=== PATIENT | female | born 1995 | race Two or more races ===

== ENCOUNTER 2024-12-02 19:40 | Emergency (ER) | payer BC, SELFPAY ==
[2024-12-02 19:41] VITALS: BMI 39.4
[2024-12-02 20:24] VITALS: BP 135/86; PULSE 102; RESP 18; TEMP 36.9; O2SAT 98
--- NOTE | 2024-12-02 20:28 | XR_ITS ---
Examination: Abdomen sonogram, Limited Date and time of exam: December 02, 2024 2103 hours INDICATIONS: Epigastric pain beginning 4 hours ago Technique: Real-time myles scale transabdominal sonographic images of the upper abdomen obtained. Findings: Normal gallbladder Normal common bile duct Pancreatic head 2.9 cm Liver 18.0 cm fatty infiltration no focal liver lesions Normal hepatopedal portal venous flow Patent IVC IMPRESSION: Normal gallbladder
--- NOTE | 2024-12-02 20:28 | EDNOTE_ITS ---
<Statement entered by Diamond Martin MD - 12/03/24 21:40> As co-signing physician, I was present and available for consult prn. I concur with the plan and care as documented by the midlevel provider. ED Abdominal Pain RME/HPI General Chief Complaint: Abdominal Pain Stated complaint: ABD PAIN Time seen by provider: 12/02/24 20:25 Arrival date/time: 12/02/24 19:40 RME / HPI RME / HPI narrative: 29-year-old female patient with no significant past medical history, came in for evaluation regarding epigastric pain. Onset of symptoms since this afternoon sudden onset of epigastric pain, described as sharp intermittent moderate patient also complained of bladder discomfort. Denies any dysuria or frequency. Denies any vomiting denies any fever but complains of nausea. No medications taken prior to arrival. Related Data Previous Rx's ?Medication ?Instructions ?Recorded cyclobenzaprine 5 mg tablet 5 mg PO QDAY PRN muscle sp asm #14 09/02/20 tabs methylprednisolone 4 mg tablets in 4 mg PO .as directe d #21 tabs 09/02/20 a dose pack (Medrol (Roly)) naproxen 500 mg tablet 500 mg PO BID PRN pain #30 t abs 09/02/20 cefuroxime axetil 500 mg tablet 500 mg PO BID #14 tabs 12/02/24 famotidine 40 mg tablet (Pepcid) 40 mg PO QDAY #20 tab s 12/02/24 ibuprofen 800 mg tablet 800 mg PO Q8H PRN pain #30 t abs 12/02/24 Allergies Allergy/AdvReac Type Severity Reaction Status Date / Time No Known Allergies Allergy Verified 12/02/24 19:41 Review of Systems Review of Systems Narrative Review of Systems: Review of system reviewed and within normal limits except mentioned in HPI ED Exam Narrative Physical exam: VITAL SIGNS: Reviewed. GENERAL APPEARANCE: Alert and interactive, follows commands, no acute distress, HEAD AND FACE: Non-traumatic. ENT: PERRL, pink conjunctivitis, eyelid no trauma, Mucous membrane moist. NECK: Supple, nontender, no nuchal rigidity. CHEST: No tenderness, no crepitus, no paradoxical movement, no retractions. LUNGS: Clear, well ventilated, symmetric, no rales, no wheezing, no ronchi, no stridor, good breath sounds bilaterally. HEART: Regular rate, regular rhythm, no murmur, no gallops. ABDOMEN: Soft, positive bowel sounds, nondistended, no guarding, epigastric tenderness, no tenderness to the left lower quadrant and right lower quadrant of the abdomen even on deep palpation. No rebound, no masses, RECTAL: Deferred. GENITAL: Deferred. NEUROLOGICAL: Gross motor function intact sensory function intact, Appropriate for age. MUSCULOSKELETAL: low back nontender, full range of motion. EXTREMITIES: Nontender, full range of motion. SKIN: Color pink, dry, no rash, no lacerations, no abrasions, no contusions. LYMPHATICS: Deferred. Course Quality Measures none Orders Category Date Time Status US gall bladder Stat Exams 12/02/24 20:28 Completed CBC Stat Lab 12/02/24 21:22 Completed Comprehensive Metabolic Panel Stat Lab 12/02/24 21:22 Completed HCG Qualitative,Urine Stat Lab 12/02/24 21:25 Completed Lipase Stat Lab 12/02/24 21:22 Completed Prothrombin Time with INR Stat Lab 12/02/24 21:22 Completed UA, C/S IF [Urinalysis, C/S if Indicated] Stat Lab 12/02/24 21:25 Completed Urine Culture Stat Lab 12/02/24 21:25 Received Ketorolac Inj [Toradol Inj] Med 12/02/24 20:28 Pending 30 mg IM X1 ONE Ondansetron Odt [Zofran Odt] Med 12/02/24 20:28 Discontinued 4 mg PO X1 ONE cefTRIAXone [Rocephin] 1,000 mg Med 12/02/24 22:06 Discontinued Lidocaine 1% 20 ml [Xylocaine 1% 20 ML] 2.1 ml IM X1 Vital Signs Vital signs: Vital Signs Temperature 98.5 F 12/02/24 20:24 Pulse Rate 102 H 12/02/24 20:24 Respiratory Rate 18 12/02/24 20:24 Blood Pressure 135/86 H 12/02/24 20:24 Pulse Oximetry (%) 98 12/02/24 20:24 Oxygen Delivery Method Room Air 12/02/24 20:24 Abdominal Pain MDM MDM Narrative MDM Narrative:: 29-year-old female patient with no significant past medical history, came in for evaluation regarding epigastric pain. Onset of symptoms since this afternoon sudden onset of epigastric pain, described as sharp intermittent moderate patient also complained of bladder discomfort. Denies any dysuria or frequency. Denies any vomiting denies any fever but complains of nausea. No medications taken prior to arrival. Ultrasound of the gallbladder came back unremarkable. Laboratory workup came back unremarkable except for significant UTI on the urinalysis Patient received ceftriaxone IM Patient appears nontoxic and hemodynamically stable .Decision to discharge the patient. The patient/family was given an opportunity to ask questions and understood their discharge instructions. Discharge instructions specifically included follow up provider and time frame, current and/or new medications and possible side effects, indications for sooner follow up or return to the emergency department, and the expected course of current diagnosis. Patient reports feeling better as well and giving evidence of significant clinical improvement, I believe patient is now a candidate for discharge. Patient data External records reviewed:: [facility] previous records Clinical information provided by:: patient Social determinants that could affect healthcare access:: none Patient has the following chronic illnesses:: None How is presenting disease/condition affected by chronic disease/condition?: no chronic disease Evaluation data The following diagnostics were reviewed and interpreted by me:: lab results and radiology exam(s) Lab and/or radiology exams considered but not ordered:: None Interpretation Summary: See results MDM Medications / Prescriptions Medications or Prescriptions considered but not ordered:: None Medication administrations:: Medication Administration History Ketorolac Tromethamine (Ketorolac Inj 60 Mg/2 Ml Vial) 30 mg IM X1 ONE Stop: 12/02/24 20:29 Discontinued Medications Ceftriaxone Sodium 1,000 mg/ (Lidocaine HCl 2.1 ml) 0 mg IM X1 ONE Stop: 12/02/24 22:07 Ondansetron HCl (Ondansetron Odt 4 Mg Tabrap) 4 mg PO X1 ONE; Protocol Stop: 12/02/24 20:29 Last Admin: 12/02/24 20:41 Dose: 4 mg Documented By: Zofran Toradol and ceftriaxone IM Consultations Consultation(s) initiated? (list below): No Diagnosis Differential diagnosis abdominal pain: other (Cholelithiasis ) Most likely diagnosis given after review of the tests above:: UTI, epigastric pain Admission Indicated Admission indicated?: not indicated Explain why admission is indicated or not indicated:: Stable Admission Request Was there a request for admission?: No Disposition Plan Disposition Plan: Discharge Discharge Attestation Discharge Attestation: The patient was given an opportunity to ask questions and understood the discharge instructions. Discharge instructions specifically effects, indications for sooner follow up or return to the emergency department, and the expected course of current diagnosis. Patient condition: Stable Discharge Plan Plan Patient Disposition: HOME (Self Care) Discharge Disposition comment: Stable Prescriptions/Referrals Prescriptions/Med Rec: New cefuroxime axetil 500 mg tablet 500 mg PO BID Qty: 14 0RF ibuprofen 800 mg tablet 800 mg PO Q8H PRN (Reason: pain) Qty: 30 0RF famotidine [Pepcid] 40 mg tablet 40 mg PO QDAY Qty: 20 0RF No Action methylprednisolone [Medrol (Roly)] 4 mg tablets,dose pack 4 mg PO .as directed Qty: 21 0RF naproxen 500 mg tablet 500 mg PO BID PRN (Reason: pain) Qty: 30 0RF cyclobenzaprine 5 mg tablet 5 mg PO QDAY PRN (Reason: muscle spasm) Qty: 14 0RF Referrals: No Primary/Family,Physician [Primary Care Provider] - In 1 week Problem List Clinical Impression: UTI (urinary tract infection), Acute epigastric pain Patient/Caregiver Discharge Instructions Discharge Activity: activity as tolerated Education Materials: Understanding Urinary Tract ... Additional Instructions: Thank you for the opportunity for serving you today. You are stable for discharged . You are advised to: Follow-up with your PCP in 1 to 2 days Return to ED for worsening of symptoms Increase oral fluids Take medication as prescribed Print Language: Chinese Stand Alone Forms: Caroline Award Info., Patient Portal Info Letter TONNY/JIGNESH Supervising Physician TONNY/JIGNESH Supervising Physician: MD Kasey
[2024-12-02] MEDS: ONDANSETRON ODT 4 MG TABRAP PO (20:41)
[2024-12-02 21:31] LABS: Collection Type, Urine Clean Catch
[2024-12-02 21:33] LABS: Basophils # (Auto) 0.1 Thou/mm3 (0.0-0.2); Basophils % (Auto) 1 % (0-2.5); Eosinophils # (Auto) 0.2 Thou/mm3 (0.0-0.5); Eosinophils % (Auto) 1 % (0-10); Hematocrit 40.9 % (36.0-46.0); Hemoglobin 14.3 g/dL (12.0-16.0); Immature Granulocytes Auto 0.10 Thou/mm3 (0.00-0.00); Lymphocytes # (Auto) 4.8 Thou/mm3 (1.0-4.8); Lymphocytes % (Auto) 20 % (10-50); Mean Corpuscular HGB Conc 35.0 g/dl (31.0-37.0); Mean Corpuscular Hemoglobin 29.5 pg (25.0-35.0); Mean Corpuscular Volume 84 fL (80-100); Monocytes # (Auto) 1.2 Thou/mm3 (0.0-0.8); Monocytes % (Auto) 5 % (0-12); Neutrophils # (Auto) 17.8 Thou/mm3 (1.8-7.7); Neutrophils % (Auto) 73 % (37-80); Nucleated Red Blood Cell # 0.00 Thou/mm3 (0.00-0.00); Nucleated Red Blood Cell % 0 /100 WBC (0); Platelet Count 354 Thou/mm3 (140-440); RDW Standard Deviation 36.3 fL (36.4-46.3); Red Blood Count 4.85 Miln/mm3 (4.00-5.20); White Blood Count 24.2 Thou/mm3 (3.6-11.0)
[2024-12-02 21:37] LABS: HCG Qualitative,Urine Negative
[2024-12-02 21:39] LABS: Bilirubin,Urine Negative (Negative); Blood,Urine Negative (Negative); Clarity,Urine Clear (Clear/Hazy); Color,Urine Lt-Yellow (Lt Yel-Yel); Glucose, Urine 4+ (Negative); Ketones,Urine Negative (Negative); Leukocyte Esterase,Urine Positive (Negative); Nitrite,Urine Negative (Negative); PH,Urine 6.0 (5.0-7.0); Protein,Urine Negative (Neg - Trace); RBC,Urine 8 /hpf (0-3); Specific Gravity,Urine 1.034 (1.001-1.035); Squamous Epithelial Cell,Urine 6 /hpf (0-5); Urobilinogen,Urine Negative mg/dL (0.0-1.0); WBC,Urine 26 /hpf (0-5)
[2024-12-02 21:40] LABS: Culture Indicated,Urine Yes
[2024-12-02 21:44] LABS: INR 1.0 (0.9-1.3); Prothrombin Time 11.3 Seconds (9.0-12.2)
[2024-12-02 21:49] LABS: Alanine Aminotransferase 63 U/L (10-49); Albumin, Serum 4.6 gm/dL (3.5-5.0); Albumin/Globulin Ratio 1.6 (1.2-2.2); Alkaline Phosphatase 188 U/L (46-116); Anion Gap 9 (7-16); Aspartate Amino Transferase 29 U/L (0-34); BUN/Creatinine Ratio 16 Ratio (12-20); Bilirubin,Total 0.4 mg/dL (0.3-1.2); Blood Urea Nitrogen 11 mg/dL (9-23); Calcium 10.1 mg/dL (8.3-10.6); Calcium (Corrected) 10.1 mg/dL (8.5-10.1); Carbon Dioxide 27.5 mMol/L (20.0-31.0); Chloride 99 mMol/L (98-107); Creatinine (Component) 0.7 mg/dL (0.6-1.3); Estimated Creatinine Clearance 137.0 mL/min (>60); Globulin 2.9 gm/dL (2.3-3.5); Glucose 302 mg/dL (74-106); Lipase 29 U/L (12-53); Osmolality,Calculated 280 (275-295); Potassium 4.0 mMol/L (3.4-5.1); Sodium 135 mMol/L (136-145); Total Protein 7.5 gm/dL (5.7-8.2); eGFR > 60 See Note
[2024-12-02] MEDS: cefTRIAXone 1,000 MG, LIDOCAINE 1% 20 ML 2.1 ML IM (22:23)
[2024-12-02] MEDS: KETOROLAC INJ 60 MG/2 ML VIAL 30 MG IM (22:24)
== END 2024-12-02 22:38 | disposition home or self-care (01) ==
PROVIDERS: Nurse Practitioner Family; Emergency Provider Emergency Medicine
DX: N39.0 Urinary tract infection, site not specified (principal); R10.13 Epigastric pain
CPT/HCPCS: 36415; 76705; 80053; 81001; 81025; 83690; 85025; 85610; 87086; 96372; 99283; J0696; J1885; J3490; Q0162